=== PATIENT | male | born 1930 | race Caucasian/White ===

== ENCOUNTER 2016-09-16 21:09 | Observation (INO) | payer MEDICARE ==
[~2016-09-16] VITALS: Ht 170.2 cm; Wt 93.9 kg
[~2016-09-16 21:09] MED LIST: AMARYL2 MG PO; AMLODIPINE5 MG PO; ASPIRIN EC81 MG PO; ATENOLOL100 MG PO; ATENOLOL50 MG PO; BAYER ASA325 MG PO; CINNAMON500 M1 OR; CIPRO XR500 MG PO; CIPROFLOXACN500 MG PO; CRESTOR20 MG OR; CRESTOR20 MG PO; DILAUDID2 MG PO; ECPIRIN325 MG OR; FE GLUCONATE325 MG OR; FERR SULFATE325 MG PO; FERROUS GLUC PO; FERROUS SULF325 M2 OR; FINASTERIDE5 MG OR; FLOMAX0.4 M1 PO; FLORASTOR250 M1 PO; GLIMEPIRIDE2 MG OR; IRON28 MG PO; LEVOTHYROXIN100 MCG PO; LEVOTHYROXIN50 MC1 PO; LEVOTHYROXIN75 MC1 PO; LISINOPRIL20 MG OR; LISINOPRIL20 MG PO; LOPID600 MG OR; LOPID600 MG PO; METFORMIN850 MG OR; MULTI VIT OR; NIACIN SR500 MG PO; NIACIN500 MG OR; NIACIN500 MG PO; PANTOPRAZOLE SO40 M1 PO; PLAVIX75 MG OR; PLAVIX75 MG PO; PRAVASTATIN SOD20 MG PO; PROSCAR5 MG PO; SIMVASTATIN80 MG PO; SYNTHROID50 MCG OR; TAMSULOSIN0.4 MG OR; TENORMIN OR; TENORMIN100 MG PO; VITAMIN B-121000 MCG OR; VITAMIN B-121000 MCG PO; VITAMIN D32000 UNIT PO; VITAMIN D50000 UN1 PO; ZESTRIL20 MG OR; ZESTRIL20 MG PO; [UNRECOGNIZED DRUG - CODE] OR; [UNRECOGNIZED DRUG - CODE] OR
[2016-09-16] MEDS ORDERED: CHLORTHALID25 MG PO (21:38)
[2016-09-16] MEDS ORDERED: CLONIDINE0.1 MG PO (21:39)
[2016-09-16 21:40] LABS: HEMATOCRIT 41.5 % (39.0-50.0); IMMATURE GRANULOCYTES 0.1 % (0.0-1.0); MEAN CELL VOLUME 92.2 fL CALC (80.0-100.0); MEAN CORPUSCULAR HGB 31.1 pG CALC (26.0-32.0); MEAN CORPUSCULAR HGB CONC 33.7 g/L CALC (32.0-36.0); NEUT# 3.36 thou/uL (1.82-7.42); RED BLOOD COUNT 4.5 mill/uL (4.70-6.10); RED CELL DISTRI WIDTH 13.5 % (11.5-15.5)
[2016-09-16] MEDS ORDERED: ASPIRIN LOW DOS81 M1 PO (21:40)
[2016-09-16] MEDS ORDERED: TRESIBA FL100 UNIT/M SC (21:42)
[2016-09-16] MEDS ORDERED: ESCITALOPRAM OX10 MG PO (21:47)
[2016-09-16] MEDS ORDERED: LOSARTAN POT50 MG PO (21:47)
[2016-09-16] MEDS ORDERED: ATORVASTATIN CA40 MG PO (21:48)
[2016-09-16 21:53] LABS: ALBUMIN 4.5 g/dL (3.2-5.0); BILIRUBIN, TOTAL 0.9 mg/dL (0.0-1.4); CALCIUM 9.4 mg/dL (8.4-10.2); CREATININE 1.5 mg/dL (0.7-1.3); POTASSIUM 4.3 mmol/l (3.5-5.1); TOTAL PROTEIN 7.6 g/dL (6.3-8.2)
[2016-09-16 21:56] LABS: ACT PARTIAL THROMBO TIME 26.5 SECONDS (20.0-32.5); PROTHROMBIN TIME 11.4 SECONDS (9.0-12.5)
[2016-09-16] MEDS ORDERED: TIMOLOL 0.5%5 ML OU (22:11)
[2016-09-16] MEDS ORDERED: LATANOPROST0.005 % OU (22:12)
[2016-09-16] MEDS ORDERED: D32000 UNI1 PO (22:16)
[2016-09-16] MEDS ORDERED: MULTIVITAMI1 PO (22:17)
[2016-09-16] MEDS ORDERED: B121000 MCG PO (22:17)
[2016-09-17 00:24] LABS: URINE BILIRUBIN - DIPSTICK NEGATIVE (NEGATIVE); URINE BLOOD DIPSTICK NEGATIVE (NEGATIVE); URINE CLARITY CLEAR; URINE COLOR YELLOW; URINE GLUCOSE - DIPSTICK NEGATIVE (NEGATIVE); URINE KETONE NEGATIVE (NEGATIVE); URINE LEUK ESTERASE NEGATIVE (NEGATIVE); URINE NITRITE - DIPSTICK NEGATIVE (Negative); URINE PH 6.5 (4.5-8.0); URINE PROTEIN - DIPSTICK NEGATIVE (NEG-TRACE)
[2016-09-17 02:57] VITALS: BP 130/68
[2016-09-17 08:01] LABS: CHOLESTEROL HDL RATIO 3.8 (<4.4 (CALC))
[2016-09-17 10:25] VITALS: BP 130/67
[2016-09-17 11:28] VITALS: BP 108/61
[2016-09-17 16:10] VITALS: BP 122/66
[2016-09-17] MEDS ORDERED: ISOSORB MONO30 MG PO (16:45)
== END 2016-09-17 17:40 | disposition home or self-care (01) ==
LOC: ED 21:09 → ED-I 09-17 00:21 → ED 09-17 02:31 → MS2 09-17 02:32
PROVIDERS: Emergency Medicine; Nurse Practitioner Family; ADMIT Internal Medicine; ATTEND Internal Medicine
DX: R07.2 Precordial pain (principal); I12.9 Hypertensive chronic kidney disease with stage 1 through stage 4 chronic kidney disease, or unspecified chronic kidney disease; E11.22 Type 2 diabetes mellitus with diabetic chronic kidney disease; N18.3 Chronic kidney disease, stage 3 (moderate); I25.10 Atherosclerotic heart disease of native coronary artery without angina pectoris; E11.51 Type 2 diabetes mellitus with diabetic peripheral angiopathy without gangrene; E11.69 Type 2 diabetes mellitus with other specified complication; E78.5 Hyperlipidemia, unspecified; R00.1 Bradycardia, unspecified; T46.5X5A Adverse effect of other antihypertensive drugs, initial encounter; E66.3 Overweight; Z79.84 Long term (current) use of oral hypoglycemic drugs; Z98.61 Coronary angioplasty status; Z87.891 Personal history of nicotine dependence; Z68.32 Body mass index [BMI] 32.0-32.9, adult

== ENCOUNTER 2018-05-08 10:42 | Inpatient (IN) | payer MEDICARE ==
[~2018-05-08] VITALS: Ht 170.2 cm; Wt 82.6 kg
[~2018-05-08 10:42] MED LIST changes: +ASPIRIN LOW DOS81 M1 PO; +ATORVASTATIN CA40 MG PO; +B121000 MCG PO; +CHLORTHALID25 MG PO; +CLONIDINE0.1 MG PO; +D32000 UNI1 PO; +ESCITALOPRAM OX10 MG PO; +ISOSORB MONO30 MG PO; +LATANOPROST0.005 % OU; +LOSARTAN POT50 MG PO; +MULTIVITAMI1 PO; +TIMOLOL 0.5%5 ML OU; +TRESIBA FL100 UNIT/M SC
--- NOTE | 2018-05-08 10:42 | NUR ---
PT TO ROOM 10 VIA EMS.
--- NOTE | 2018-05-08 11:06 | NUR ---
PT PLACED ON HI FLOW NC AT 8L/M W/HUMIFICATION
[2018-05-08 11:08] LABS: IMMATURE GRANULOCYTES 0.4 % (0.0-5.0); MEAN CORPUSCULAR HGB 30.5 pG CALC (26.0-32.0); MEAN CORPUSCULAR HGB CONC 31.1 g/L CALC (32.0-36.0); NEUT# 9.67 thou/uL (1.82-7.42); RED BLOOD COUNT 3.57 mill/uL (4.70-6.10); RED CELL DISTRI WIDTH 16.4 % (11.5-15.5)
[2018-05-08 11:21] LABS: HEMATOCRIT 35.1 % (39.0-50.0); HEMOGLOBIN 10.9 g/dl (14.0-18.0); MEAN CELL VOLUME 98.3 fL CALC (80.0-100.0)
[2018-05-08 11:24] LABS: ALBUMIN 3.6 g/dL (3.2-5.0); ALKALINE PHOSPHATASE 144 u/l (38-126); ANION GAP 16 (6-22 (CALC)); BILIRUBIN, TOTAL 1.1 mg/dL (0.0-1.4); BUN 22 mg/dL (8-23); BUN/CREATININE RATIO 24 (12-20 (CALC)); CARBON DIOXIDE 26 mmol/l (22-30); CHLORIDE 98 mmol/l (95-108); CREATININE 0.9 mg/dL (0.7-1.3); GFR > 60 ML/MIN (>=60 (CALC)); GFR FOR AFR.AMER. > 60 ML/MIN (>=60 (CALC)); POTASSIUM 4.6 mmol/l (3.5-5.1); SGOT/AST 30 u/l (19-48); SODIUM 136 mmol/l (137-146); TOTAL PROTEIN 6.8 g/dL (6.3-8.2)
[2018-05-08 11:36] LABS: MYOGLOBIN 227 ng/mL (0 - 121)
--- NOTE | 2018-05-08 12:05 | NUR ---
pt awaiting xray results.
--- NOTE | 2018-05-08 13:00 | NUR ---
pt sleeping on stretcher. sats 96%
--- NOTE | 2018-05-08 13:00 | NUR ---
PT RESTING ON STRETCHER W/EYES CLOSED. SATS 96% WHEN ASLEEP ELEVATED HOB AND NOT TALKING
--- NOTE | 2018-05-08 13:46 | NUR ---
[facility] VEGA[facility]
--- NOTE | 2018-05-08 13:52 | NUR ---
report called to jacqueline mock, on medsurg. pt to medsurg via stretch on o2.
--- NOTE | 2018-05-08 14:00 | NUR ---
PT ARRIVED TO MS2 VIA STRETCHER ACCOMPANIED BY ER NURSE. PT ALERT AND ORIENTED X3, AMBULATED TO STANDING SCALE THEN TO BED. ORIENTED PT TO ROOM AND CALL LIGHT, DISCUSSED POC. ADMISSION ASSESSMENT COMPLETED. PT IS ON 10L NC WITH HI-TEVIN, CONFIRMED WITH RT AND PACKAGING SUPERVISOR. PT IS 02 DEPENDENT. CALL LIGHT IN REACH,CONTINUE TO MONITOR.
[2018-05-08 14:05] VITALS: BP 127/73
[2018-05-08 15:35] LABS: MAGNESIUM 1.6 mg/dL (1.6-2.3)
--- NOTE | 2018-05-08 16:15 | NUR ---
PT TAKEN DOWN TO RADIOLOGY FOR CT VIA WHEELCHAIR ACCOMPANIED BY CAREER CENTER ADVISOR. CONTINUE TO MONITOR.
[2018-05-08 19:19] VITALS: BP 159/70
--- NOTE | 2018-05-08 19:47 | NUR ---
PT ASSESSED. HE WAS IN BED AWAKE WATCHING TV. NO S/O DISTRESS NOTED, REPORTS FEELING "OKAY." POC AND HISTORY DISCUSSED. CRACKLES AND MILD WHEEZE AUSCILTATED IN LUNGS, ABD SOFT NON-TENDER W/ACTIVE BOWEL SOUNDS/LAST STOOL REPORTED YESTERDAY NORMAL. LOCX4. DENIES DIZZINESS, REPORTED FEELING VERY WEAK AND SOME SOB TODAY PRIOR TO ARRIVING TO HOSPITAL. 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 DENIES DIFFICULTY URINATING. SKIN IS INTACT, NO NOTED EDEMA. PT RECEIVED PHONE CALL, WILL FOLLOW-UP WITH ANY MEDICATIONS ORDERED.
[2018-05-08] MEDS ORDERED: ISOSORB MONO30 MG PO (21:47)
[2018-05-08] MEDS ORDERED: LEVOTHYROXIN100 MC1 PO (21:47)
[2018-05-08] MEDS ORDERED: COZAAR100 MG PO (21:48)
[2018-05-08] MEDS ORDERED: AMLODIPINE BESYL5 MG PO (21:48)
[2018-05-08] MEDS ORDERED: LOPRESSOR 550 MG/TAB PO (21:48)
[2018-05-08] MEDS ORDERED: CLONIDINE0.1 MG PO (21:49)
[2018-05-08] MEDS ORDERED: LEXAPRO10 MG PO (21:49)
[2018-05-08] MEDS ORDERED: LIPITOR40 M1 PO (21:50)
[2018-05-08] MEDS ORDERED: PROTONIX40 M2 PO (21:50)
--- NOTE | 2018-05-08 21:50 | NUR ---
PT MEDICATED FOR BLOOD SUGAR ACCUCHECK OF 247. IV SITE APPEARS INFILTRATED/WILL ATTEMPT ADDITIONAL IV ACESS. PT APPEARS RELAXED AND IS PLEASANTLY INTERACTING REGARDING CARE.
[2018-05-08] MEDS ORDERED: TOUJEO SOL300 UNIT/M SC (21:51)
[2018-05-08] MEDS ORDERED: ASPIRIN ADULT L81 M2 PO (21:52)
[2018-05-08 23:30] LABS: URINE BILIRUBIN - DIPSTICK NEGATIVE (NEGATIVE); URINE BLOOD DIPSTICK TRACE-INTACT (NEGATIVE); URINE COLOR YELLOW; URINE GLUCOSE - DIPSTICK 500 mg/dL (NEGATIVE); URINE KETONE NEGATIVE (NEGATIVE); URINE LEUK ESTERASE NEGATIVE (NEGATIVE); URINE NITRITE - DIPSTICK NEGATIVE (Negative); URINE PH 5.5 (4.5-8.0); URINE PROTEIN - DIPSTICK NEGATIVE (NEG-TRACE)
[2018-05-09] VITALS (8 sets, daily range): BP systolic 115–180; BP diastolic 53–80
--- NOTE | 2018-05-09 00:15 | NUR ---
PT BP ELEVATED 180/73,HR 81. PT WAS SLEEPING, MANUAL BP OBTAINED. PHYSICIAN NOTIFIED, ORDERS RECEIVED.
--- NOTE | 2018-05-09 00:40 | NUR ---
PT MEDICATED FOR SBP 182. WILL FOLLOW-UP FOR RESPONSE.
--- NOTE | 2018-05-09 03:25 | NUR ---
ED CALLED TO REPORT PT HAD AN 8 BEAT RUN OF V-TACH. UPON ENTERING ROOM PT WAS ASLEEP, AWOKE TO MY VOICE, APPEARS ASYMPTOMATIC, DENYING PAIN, SOB OR DISTRESS AT THIS TIME. V/S OBTAINED. PHYSICIAN WILL BE NOTIFIED.
--- NOTE | 2018-05-09 06:15 | NUR ---
PT MEDICATED ORDERS PROVIDE. PT SITTING ON SIDE OF THE BED, PT OFFERED COFFEE/PROVIDED. HE IS READING A BOOK.
[2018-05-09 06:44] LABS: ANION GAP 14 (6-22 (CALC)); BUN 19 mg/dL (8-23); BUN/CREATININE RATIO 25 (12-20 (CALC)); CARBON DIOXIDE 29 mmol/l (22-30); CHLORIDE 99 mmol/l (95-108); CREATININE 0.8 mg/dL (0.7-1.3); GFR > 60 ML/MIN (>=60 (CALC)); GFR FOR AFR.AMER. > 60 ML/MIN (>=60 (CALC)); MAGNESIUM 1.7 mg/dL (1.6-2.3); SODIUM 139 mmol/l (137-146)
[2018-05-09 07:02] LABS: HEMOGLOBIN 12.6 g/dl (14.0-18.0); IMMATURE GRANULOCYTES 1.3 % (0.0-5.0); MEAN CELL VOLUME 95.5 fL CALC (80.0-100.0); MEAN CORPUSCULAR HGB 30.1 pG CALC (26.0-32.0); MEAN CORPUSCULAR HGB CONC 31.5 g/L CALC (32.0-36.0); NEUT# 8.34 thou/uL (1.82-7.42); RED BLOOD COUNT 4.19 mill/uL (4.70-6.10); RED CELL DISTRI WIDTH 16.2 % (11.5-15.5)
--- NOTE | 2018-05-09 08:00 | NUR ---
NOTIFIED BY ELIAS IN LAB PT HAS A CRITICAL TROPONIN, RESULTS CALLED TO JUNE, PT IS ASYMPTOMATIC, SITTING IN RECLINER READING, DENIES PAIN OR DISCOMFORT. ORDERS TO REPEAT IN 4HRS.
--- NOTE | 2018-05-09 10:53 | NUR ---
RECIEVED A CRITICAL LAB REPORT FROM NOAM. TROPONIN READING 0.173. TROPININ LEVEL GIVEN TO CURRENT NURSE CARING FOR PT; ULICES VEGA
--- NOTE | 2018-05-09 10:56 | NUR ---
NOTIFIED BASE BRANDER OF CRITICAL TROPONIN, PREVIOUS 0.149 REPEAT 0.173. BASE BRANDER TO DISCUSS WITH PT AND SON AT BEDSIDE. STAT EKG ORDERED. RT CALLED. PT STABLE SITTING IN RECLINER, NO SIGNS OF DISTRESS NOTED, RESP EVEN AND UNLABORED.
--- NOTE | 2018-05-09 10:59 | NUR ---
RT TO BEDSIDE FOR EKG
--- NOTE | 2018-05-09 19:05 | NUR ---
REPORT FROM GARY ELENA. PT SITTING UP IN CHAIR. O2 AT 8L/M HUMIDIFIED VIA HIGHFLOW NC. NO RESPIRATORY DISTRESS NOTED. PT DENIES ANY PAIN OR DISCOMFORT. PT VERY TALKATIVE AND PLEASANT. IV SITE APPEARS HEALTHY. DISCUSSED POC. PT VERBALIZED UNDERSTANDING. CALL LIGHT WITHIN REACH. WILL CONTINUE TO MONITOR.
--- NOTE | 2018-05-09 21:52 | NUR ---
NOTIFIED DR. YANEZ OF CRITICAL LABS. PT ASYMPTOMATIC. NO NEW ORDERS RECIEVED AT THIS TIME. WILL CONTINUE TO MONITOR.
--- NOTE | 2018-05-09 23:05 | NUR ---
PT REPORTS HIGHFLOW NC NOT WORKING PROPERLY. RT IN ROOM TO ASSESS. HIGH FLOW NC CHANGED AT THIS TIME AND PLACED ON REGULAR NC ON 4L/M PT O2 SAT 93% AT THIS TIME. WILL CONTINUE TO MONITOR.
[2018-05-10] VITALS (7 sets, daily range): BP systolic 144–177; BP diastolic 70–87
--- NOTE | 2018-05-10 03:27 | NUR ---
PT C/O NC NOT WORKING STATING NO OXYGEN COMING OUT. PUBLIC SERVICE OFFICER CHECKED NC. WORKING PROPERLY AT THIS TIME. 02 SAT CHECKED PT 97% ON 4L/M. WILL CONTINUE TO MONITOR.
[2018-05-10 05:11] LABS: HEMATOCRIT 38.4 % (39.0-50.0); HEMOGLOBIN 12.2 g/dl (14.0-18.0); MEAN CELL VOLUME 95.8 fL CALC (80.0-100.0); MEAN CORPUSCULAR HGB 30.4 pG CALC (26.0-32.0); MEAN CORPUSCULAR HGB CONC 31.8 g/L CALC (32.0-36.0); NEUT# 15.85 thou/uL (1.82-7.42); RED BLOOD COUNT 4.01 mill/uL (4.70-6.10); RED CELL DISTRI WIDTH 16.5 % (11.5-15.5)
[2018-05-10 05:22] LABS: ANION GAP 15 (6-22 (CALC)); BUN 26 mg/dL (8-23); BUN/CREATININE RATIO 29 (12-20 (CALC)); CARBON DIOXIDE 27 mmol/l (22-30); CHLORIDE 101 mmol/l (95-108); CREATININE 0.9 mg/dL (0.7-1.3); GFR > 60 ML/MIN (>=60 (CALC)); GFR FOR AFR.AMER. > 60 ML/MIN (>=60 (CALC)); MAGNESIUM 2.1 mg/dL (1.6-2.3); SODIUM 140 mmol/l (137-146)
--- NOTE | 2018-05-10 05:47 | NUR ---
CRITICAL LAB CALLED TO DR. YANEZ. NO NEW ORDERS RECIEVED AT THIS TIME.
--- NOTE | 2018-05-10 07:00 | NUR ---
REPORT RECEIVED FROM ULICES BOWLING;PT OOB RESTING IN RECLINER WATCHING TV;INTRODUCED SELF TO PT AND POC DISCUSSED;RESPIRATIONS EVEN AND UNLABORED ON O2;PT DENIES ANY CURRENT PAIN OR NEEDS;ACCUCHECK 239, PT TO BE COVERED WITH SLIDING SCALE NOVOLOG PER ORDER;ENCOURAGED TO CALL FOR ASSISTANCE IF NEEDED;FALL PRECAUTIONS IN PLACE WITH CALL LIGHT IN REACH;WILL CONTINUE TO MONITOR
--- NOTE | 2018-05-10 08:00 | NUR ---
PT OOB RESTING IN RECLINER WATCHING TV,A&O X3;VS OBTAINED AND ASSESSMENT COMPLETED;RESPIRATIONS EVEN AND UNLABORED ON O2 @ 4L VIA NC,CRACKLES NOTED;NON-PRODUCTIVE COUGH;ABDOMEN DISTENDED/SOFT ON PALPATION AND ACTIVE IN ALL 4 QUADRANTS;WEAK PEDAL PULSES;SKIN INTACT;#22G TO LAC AND #22G TO RAC FLUSHED AND PATENT,BOTH SITES APPEAR HEALTHY;TELE MONITORING IN PLACE;ACCUCHECK 239, PT COVERED WITH SLIDING SCALE NOVOLOG PER ORDER;FRESH COFFEE PROVIDED PER REQUEST;PT DENIES ANY ADDITIONAL NEEDS AT THIS TIME;ENCOURAGED TO CALL FOR ASSISTANCE IF NEEDED;FALL PRECAUTIONS IN PLACE WITH CALL LIGHT IN REACH;WILL CONTINUE TO MONITOR
--- NOTE | 2018-05-10 09:21 | NUR ---
SPOKE TO DR. WILSON'S OFFICE STAFF AT [phone]. TOLD THEM PT NAME,, AND ROOM NUMBER. STAFF STATED THEY WILL LET DR. WILSON KNOW ABOUT CONSULTATION.
--- NOTE | 2018-05-10 11:25 | NUR ---
PT OOB RESTING IN RECLINER WATCHING TV;RESPIRATIONS REMAIN EVEN AND UNLABORED,SHALLOW ON O2 @ 4L VIA NC;PT DENIES ANY CURRENT PAIN OR NEEDS;TELE MONITORING IN PLACE;ACCUCHECK 288, COVERED WITH SLIDING SCALE NOVOLOG PER ORDER;IV SITES REMAIN PATENT;PT ENCOURAGED TO CALL FOR ASSISTANCE IF NEEDED;FALL PRECAUTIONS IN PLACE WITH CALL LIGHT IN REACH;WILL CONTINUE TO MONITOR
--- NOTE | 2018-05-10 12:15 | NUR ---
AT BEDSIDE DISCUSSING POC.
--- NOTE | 2018-05-10 16:13 | NUR ---
PT OOB RESTING IN RECLINER WATCHING TV;RESPIRATIONS EVEN AND UNLABORED ON O2 @ 4L VIA NC;PT DENIES ANY CURRENT PAIN OR NEEDS;TELE MONITORING IN PLACE;ASSESSMENT REMAINS UNCHANGED AT THIS TIME;ENCOURAGED TO CALL FOR ASSISTANCE IF NEEDED;CALL LIGHT IN REACH;WILL CONTINUE TO MONITOR
--- NOTE | 2018-05-10 17:12 | NUR ---
AT BEDSIDE DISCUSSING POC.
--- NOTE | 2018-05-10 20:20 | NUR ---
PT. RESTING IN BED ON RIGHT SIDE WITH EYES CLOSED; AROUSES EASILY AND AWAKENED FOR ASSESSMENT; COMPLETED AT THIS TIME; O2 INFUSING PER NC @4LITERS/MIN PER NC; IV SITE PATENT AND SL; ENCOURAGED TO CALL FOR ANY NEEDS; CALL LIGHT IS IN REACH;
--- NOTE | 2018-05-10 22:12 | NUR ---
NOTIFIED DR. YANEZ OF PT HAVING CONFUSION AND PT. BEING FOUND WITHOUT O2 UP TO THE BATHROOM AND SPO2 CHECKED WITH O2 RE-APPLIED AND BEING 95%; ALSO NOTIFIED HIM OF PT. NOT HAVING MUCH SLEEP IN THE PAST COUPLE DAYS; NEW ORDERS FOR ABG OBTAINED AND RT NOTIFIED;
--- NOTE | 2018-05-10 22:24 | NUR ---
NOTIFIED DR. YANEZ OF ABG RESULTS;
--- NOTE | 2018-05-10 23:00 | NUR ---
NOTIFIED DR. YANEZ OF PT. CONITUING TO BE INTERMITTENTLY CONFUSED WITH WHERE HE IS; NEW ORDERS RECEIVED FOR UA; WILL CARRY OUT ORDERS; MEDICATED WITH ORDERED PRN APRESOLINE FOR B/P ; WILL REASSESS; PT. REMINDED AND RE-ORIENTED TO CALL LIGHT USE; BED ALARM ON FOR SAFETY PRECAUTIONS; CALL LIGHT IS IN REACH.
[2018-05-11 01:45] VITALS: BP 148/76
--- NOTE | 2018-05-11 03:00 | NUR ---
EMPLOYEE HEALTH RN IN AT BEDSIDE ASSISTED PT. TO USE URINAL; SAMPLE OBTAINED; LAB CALLED FOR ADVANCED MANAGER.
[2018-05-11 04:35] VITALS: BP 158/85
[2018-05-11 04:51] LABS: URINE BILIRUBIN - DIPSTICK NEGATIVE (NEGATIVE); URINE BLOOD DIPSTICK NEGATIVE (NEGATIVE); URINE COLOR YELLOW; URINE GLUCOSE - DIPSTICK 250 mg/dL (NEGATIVE); URINE KETONE NEGATIVE (NEGATIVE); URINE LEUK ESTERASE NEGATIVE (Negative); URINE NITRITE - DIPSTICK NEGATIVE (Negative); URINE PROTEIN - DIPSTICK 30 mg/dL (NEG-TRACE); URINE SPECIFIC GRAVITY 1.025
[2018-05-11 04:52] LABS: URINE CLARITY CLEAR
[2018-05-11 05:16] LABS: ALBUMIN 3.9 g/dL (3.2-5.0); ALKALINE PHOSPHATASE 139 u/l (38-126); AMYLASE 88 u/l (30-110); ANION GAP 16 (6-22 (CALC)); BILIRUBIN, TOTAL 0.5 mg/dL (0.0-1.4); BUN 27 mg/dL (8-23); BUN/CREATININE RATIO 35 (12-20 (CALC)); CARBON DIOXIDE 30 mmol/l (22-30); CHLORIDE 100 mmol/l (95-108); CREATININE 0.8 mg/dL (0.7-1.3); GFR > 60 ML/MIN (>=60 (CALC)); GFR FOR AFR.AMER. > 60 ML/MIN (>=60 (CALC)); LIPASE 360 u/l (23-300); POTASSIUM 4.4 mmol/l (3.5-5.1); SGOT/AST 37 u/l (19-48); SODIUM 141 mmol/l (137-146); TOTAL PROTEIN 7.2 g/dL (6.3-8.2)
[2018-05-11 05:17] LABS: HEMATOCRIT 38.9 % (39.0-50.0); HEMOGLOBIN 12.2 g/dl (14.0-18.0); IMMATURE GRANULOCYTES 1.5 % (0.0-5.0); MEAN CELL VOLUME 96.3 fL CALC (80.0-100.0); MEAN CORPUSCULAR HGB 30.2 pG CALC (26.0-32.0); MEAN CORPUSCULAR HGB CONC 31.4 g/L CALC (32.0-36.0); NEUT# 19.05 thou/uL (1.82-7.42); RED BLOOD COUNT 4.04 mill/uL (4.70-6.10); RED CELL DISTRI WIDTH 16.6 % (11.5-15.5)
[2018-05-11 06:35] LABS: URINE RBC 0-2 RBC/hpf (0-5); URINE WBC 0-2 WBC/hpf (0-5)
--- NOTE | 2018-05-11 06:50 | NUR ---
REPORT RECEIVED FROM MICHELLERN;PT RESTING IN SEMI FOWLERS POSITION,A&O X3;INTRODUCED SELF TO PT AND POC DISCUSSED;RESPIRATIONS EVEN AND UNLABORED,SHALLOW ON O2 @ 4L VIA NC;PT DENIES ANY CURRENT PAIN OR NEEDS;TELE MONITORING IN PLACE;ENCOURAGED TO CALL FOR ASSISTANCE IF NEEDED;FALL PRECAUTIONS IN PLACE WITH CALL LIGHT IN REACH;WILL CONTINUE TO MONITOR
--- NOTE | 2018-05-11 06:56 | NUR ---
NOTIFIED DR. YANEZ OF 7 BEAT RUN OF V-TACH.
[2018-05-11 08:13] VITALS: BP 162/79
--- NOTE | 2018-05-11 08:15 | NUR ---
PT RESTING IN SEMI FOWLERS POSITION,A&O X3;VS OBTAINED AND ASSESSMENT COMPLETED;PT DENIES ANY CURRENT PAIN OR DISCOMFORTS,PAIN SCALE AND REPORTING EDUCATED;RESPIRATIONS SHALLOW ON O2 @ 4L VIA NC;ABDOMEN DISTENDED/SOFT ON PALPATION AND ACTIVE IN ALL 4 QUADRANTS;WEAK PEDAL PULSES;SKIN INTACT;#20G TO RAC FLUSHED AND PATENT;TELE MONITORING IN PLACE;PT DENIES ANY ADDITIONAL NEEDS AT THIS TIME AND IS ENCOURAGED TO CALL FOR ASSISTANCE IF NEEDED;FALL PRECAUTIONS IN PLACE WITH CALL LIGHT IN REACH;WILL CONTINUE TO MONITOR
--- NOTE | 2018-05-11 11:36 | NUR ---
PT OOB RESTING IN RECLINER WITH AT BEDSIDE DISCUSSING POC;RESPIRATIONS EVEN AND UNLABORED ON O2 @ 4L VIA NC;PT DENIES ANY CURRENT PAIN OR NEEDS;TELE MONITORING IN PLACE;ASSESSMENT REMAINS UNCHANGED AT THIS TIME;ENCOURAGED PT TO CALL FOR ASSISTANCE IF NEEDED;CALL LIGHT IN REACH;WILL CONTINUE TO MONITOR
[2018-05-11 12:00] VITALS: BP 147/74
--- NOTE | 2018-05-11 13:59 | NUR ---
PT WAS SEEN RESTING IN THE RECLINER WITH O2 VIA NASAL CANNULA SET AT 3L. THERE WAS AN BLOCK SEALER PRESENT PERFORMING BREATHING TX. SPO2 WAS 94-96% WITHOUT SOB. PT THEN AMBULATED THE HALLWAY ~60 FT. X 2 WITH QUAD CANE AND PORTABLE O2 SET AT 3L. PT WAS ABLE TO FINISH THE ACTIVITY HOWEVER NOTED SOB AT THE END. PT WAS THEN INSTRUCTED ON PROPER BREATHING AND ASSISTED TO REST IN THE RECLINER, SOB RESOLVED. NO ADVERSE RXNS NOTED OR REPORTED. LEFT PT WITH CALL SOW BESIDE HIM.
--- NOTE | 2018-05-11 15:59 | NUR ---
PT OOB RESTING IN RECLINER;IV SITE TO RAC INFILTRATED AND REMOVED WITH CATHETER INTACT,NEW SITE TO BE STARTED;RESPIRATIONS EVEN AND UNLABORED ON O2 @ 4L VIA NC;TELE MONITORING IN PLACE;PT DENIES ANY ADDITIONAL NEEDS AT THIS TIME AND IS ENCOURAGED TO CALL FOR ASSISTANCE IF NEEDED;CALL LIGHT IN REACH;WILL CONTINUE TO MONITOR
[2018-05-11 16:00] VITALS: BP 165/76
--- NOTE | 2018-05-11 16:40 | NUR ---
PT UPSET. PT STATES "MY IV HURTS AND ITS BECAUSE YOU LEFT THIS BANDAGE (COBAN) ON";PT RE-EDUCATED THAT NURIAITTER REMOVED IV SITE ALITTLE WHILE AGO AND THAT THE BURNING AT THE SITE IS RELATED TO THE INFILTRATION;PT STATES "IF YOU WOULD HAVE DONE YOUR JOB YOU WOULD HAVE KNOWN THAT MY ARM IS STILL BURNING SINCE YOU TOOK IT OUT", PT ALSO REPORTS THAT HE DID NOT REPORT EXCESSIVE BURNING OR USE THE CALL LIGHT TO INFORM NURSE STATING "AM I SUPPOSED TO CALL YOU FOR EVERYTHING";ICE PACKS PROVIDED FOR COMFORT;WHEN GABBY REINFORCED THE CALL LIGHT SYSTEM PT STATED "GET OUT OF MY ROOM, YOU ARE АННА I JUST DONT LEAVE".
--- NOTE | 2018-05-11 19:15 | NUR ---
PT. UP IN THE HALLWAY CONFUSED TO PLACE; RE-ORIENTED AT THIS TIME; NEEDS OFTEN REINFORCEMENT;
[2018-05-11 19:35] VITALS: BP 162/78
--- NOTE | 2018-05-11 21:24 | NUR ---
ASSESSMENT COMPLETED; PT. TALKING TO SON ON THE PHONE; PT. IS NOT ALERT TO PLACE AT THIS TIME; RE-ORIENTED; WILL CONTINUE TO DO SO. IV SITE PATENT AND SL; SNACK PROVIDED; SCHED MEDS GIVEN; ENCOURAGED TO CALL FOR ANY NEEDS; CALL LIGHT IS IN REACH; BED ALARM IN PLACE FOR SAFETY PRECAUTIONS; PT. RE-INSTRUCTED NOT TO GET OOB ALONE; PT. STATES,"I AM NOT GOING TO CALL YOU IF I HAVE TO GO, I AM JUST GOING TO GET UP."PT. AGAIN RE-EDUCATED ON CALLING STAFF FOR ALL OOB NEEDS; WILL CONTINUE TO MONITOR.
--- NOTE | 2018-05-11 22:15 | NUR ---
PT. UP IN THE HALLWAY AND REFUSES TO GO BACK INTO ROOM; YELLING AT STAFF WITH CURSE WORDS STATING,"I AM AT MY FUCKING HOUSE, YOU GUYS HAVE NO RIGHT TO BE TRESPASSING." PT. ALSO STATES,"I AM NOT SITTING DOWN UNTIL I GET MY DAMN RADIO." PT. IS RE-ORIENTED TO PLACE AND IS UNSUCCESSFUL; MULTIPLE STAFF IN WITH PT. AT THIS TIME. PT. IS VERBALLY AGRESSIVE WITH STAFF; PT. FINALLY SITS BACK INTO RECLINER AND PT. IS STILL ANGRY; ATTEMPTED RELAXATION TECHNIQUES; WILL CONTINUE TO MONITOR. BED ALARM RE-APPLIED; CALL LIGHT IS IN REACH.
--- NOTE | 2018-05-11 22:50 | NUR ---
SPOKE WITH MD LAYER OFF AND NOTIFIED HIM OF PT'S CONFUSION AND OF AGGRESIVENESS TOWARDS STAFF; ALSO NOTIFIED HIM PT'S INCREASE OF CONFUSION POST STEROID ADMINISTRATION; NO NEW ORDERS RECEIVED AT THIS TIME;
--- NOTE | 2018-05-11 23:25 | NUR ---
PT. SET OFF BED ALARM; ASSISTED TO USE URINAL AND GET BACK TO RECLINER; RESET BED ALARM; CALL LIGHT IS IN REACH.
[2018-05-12 02:38] VITALS: BP 174/92
--- NOTE | 2018-05-12 02:42 | NUR ---
MEDICATED WITH ORDERED PRN APRESOLINE FOR ELEVATED B/P 174/92; WILL REASSESS; DENIES FURTHER NEEDS; BED ALARM ON; CALL LIGHT IS IN REACH.
--- NOTE | 2018-05-12 04:47 | NUR ---
PER STAFF DEVELOPMENT EDUCATOR HR WAS IN THE 30'S; RADIAL HR OBTAINED AND IS 78; PT. WITH NO S/S OF DISTRESS NOTED; VS OBTAINED B/P 159/80; WILL CONTINUE TO MONITOR.
[2018-05-12 04:48] VITALS: BP 159/80
--- NOTE | 2018-05-12 05:19 | NUR ---
0507- PER ER DRAGLINE MECHANIC, PT. HAD A 7 BEAT RUN OF V-TACH; PT. IS SITTING UP IN RECLINER RECEIVING A NEB TX; NO DISTRESS NOTED; DENIES PAIN; PT. IS ASYMPTOMATIC; VSS; WILL CONTINUE TO MONITOR. 9546- NOTIFIED DR. YANEZ OF ABOVE NOTE; NO NEW ORDERS RECEIVED;
[2018-05-12 05:53] LABS: HEMATOCRIT 41.8 % (39.0-50.0); HEMOGLOBIN 13.4 g/dl (14.0-18.0); IMMATURE GRANULOCYTES 2.1 % (0.0-5.0); MEAN CELL VOLUME 95.7 fL CALC (80.0-100.0); MEAN CORPUSCULAR HGB 30.7 pG CALC (26.0-32.0); MEAN CORPUSCULAR HGB CONC 32.1 g/L CALC (32.0-36.0); NEUT# 19.45 thou/uL (1.82-7.42); RED BLOOD COUNT 4.37 mill/uL (4.70-6.10); RED CELL DISTRI WIDTH 16.5 % (11.5-15.5)
[2018-05-12 06:13] LABS: ALBUMIN 4.1 g/dL (3.2-5.0); ALKALINE PHOSPHATASE 138 u/l (38-126); ANION GAP 15 (6-22 (CALC)); BILIRUBIN, TOTAL 0.6 mg/dL (0.0-1.4); BUN 34 mg/dL (8-23); BUN/CREATININE RATIO 37 (12-20 (CALC)); CARBON DIOXIDE 29 mmol/l (22-30); CHLORIDE 100 mmol/l (95-108); CREATININE 0.9 mg/dL (0.7-1.3); GFR > 60 ML/MIN (>=60 (CALC)); GFR FOR AFR.AMER. > 60 ML/MIN (>=60 (CALC)); POTASSIUM 4.8 mmol/l (3.5-5.1); SGOT/AST 34 u/l (19-48); SODIUM 140 mmol/l (137-146); TOTAL PROTEIN 7.4 g/dL (6.3-8.2)
--- NOTE | 2018-05-12 07:20 | NUR ---
REPORT RECEIVED FROM STEPHANIE MARTINEZ;PT OOB RESTING IN RECLINER;INTRODUCED SELF TO PT AND POC DISCUSSED;RESPIRATIONS SHALLOW ON O2 @ 3L VIA NC, REINFORCEMENT REQUIRED WITH KEEPING OXYGEN ON;PT DENIES ANY CURRENT PAIN OR NEEDS;TELE MONITORING IN PLACE;ENCOURAGED PT TO CALL FOR ASSISTANCE IF NEEDED;FALL PRECAUTIONS IN PLACE INCLUDING BED ALARM FOR PT SAFETY;CALL LIGHT IN REACH;WILL CONTINUE TO MONITOR
[2018-05-12 08:55] VITALS: BP 150/74
--- NOTE | 2018-05-12 08:55 | NUR ---
PT OOB RESTING IN RECLINER;A&O X1 AT THIS TIME, FREQUENT RE-ORIENTING NEEDED TO PLACE AND TIME;VS OBTAINED AND ASSESSMENT COMPLETED;RESPIRATIONS EVEN AND UNLABORED ON O2 @ 3L VIA NC, FREQUENT REINFORCEMENT REQUIRED TO KEEP OXYGEN ON;ABDOMEN DISTENDED/SOFT ON PALPATION AND ACTIVE IN ALL 4 QUADRANTS;WEAK PEDAL PULSES;SKIN INTACT;#22G TO RIGHT WRIST FLUSHED AND PATENT,SITE APPEARS HEALTHY;TELE MONITORING IN PLACE;ALL SAFETY PRECAUTIONS REINFORCED AT THIS TIME INCLUDING BED ALARM FOR PT SAFETY;PT RE-ENCOURAGED TO CALL FOR ASSISTANCE IF NEEDED;CALL LIGHT IN REACH;WILL CONTINUE TO MONITOR
[2018-05-12 08:58] VITALS: BP 150/74
--- NOTE | 2018-05-12 11:40 | NUR ---
PHYSICAL THERAPY AT BEDSIDE
--- NOTE | 2018-05-12 11:42 | NUR ---
PT OOB RESTING IN RECLINER WITH AT BEDSIDE DISCUSSING POC INCLUDING DISCHARGE HOME WITH HOME HEALTH,PT VERBALIZES UNDERSTANDING;RESPIRATIONS REMAIN SHALLOW ON O2 @ 3L VIA NC;PT DENIES ANY CURRENT PAIN OR NEEDS;IV SITE TO RW PATENT;TELE MONITORING IN PLACE;ACCUCHECK 251, NOVOLOG TO BE ADMINISTERED PER ORDER;ENCOURAGED TO CALL FOR ASSISTANCE IF NEEDED;BED ALARM REMAINS IN PLACE FOR SAFETY;CALL LIGHT IN REACH;WILL CONTINUE TO MONITOR
--- NOTE | 2018-05-12 12:02 | NUR ---
Pt seen this am for mobility to increase endurance. He was confused stating some girls moved into his house yesterday and he told them to get the H__ out of there. Tried to re orient pt. Pt ambulated 1 x 50' CGA with small base quad cane which seemed to hinder him. Pt reports no device at home. He walked a second time without device and CGA given but not required x 75' with no LOB noted. Pt returned to chair with alarm in place, call [place] in reach. Lunch set on bedside tray in front of him. Nurse and MD present. 02 sat 94 to 88 with [address] Gait belt and non skid socks in place during treatment.
[2018-05-12] MEDS ORDERED: DOXYCYCL HYC100 MG PO (14:18)
--- NOTE | 2018-05-12 14:40 | NUR ---
PT YELLING AT STAFF, PULLING OFF TELE MONITORING STATING "IM LEAVING RIGHT NOW";IV SITE REMOVED WITH CATHETER INTACT;ALL DISCHARGE INSTRUCTIONS PROVIDED AND PT DENIES ANY QUESTIONS;WHEELCHAIR PROVIDED FOR DISCHARGE HOME.
--- NOTE | 2018-05-12 14:43 | NUR ---
Discharge instructions given. Patient verbalizes understanding of same. Discharged in stable condition via Wheelchair to Home with friend. All belongings sent with pt. Pt wheelchaired to lobby via wheelchair in stable condition accompanied by kain rich. Friend transporting pt home.
== END 2018-05-12 14:40 | disposition home or self-care (01) | DRG 190 ==
LOC: ED 10:42 → ED-I 12:22 → ED 12:48 → MS2 12:49
PROVIDERS: Emergency Medicine; Internal Medicine Nephrology; Nurse Practitioner Family; ADMIT Internal Medicine; ATTEND Internal Medicine
DX: J43.9 Emphysema, unspecified (principal); J18.9 Pneumonia, unspecified organism; I47.2 Ventricular tachycardia; J84.10 Pulmonary fibrosis, unspecified; I12.9 Hypertensive chronic kidney disease with stage 1 through stage 4 chronic kidney disease, or unspecified chronic kidney disease; E11.22 Type 2 diabetes mellitus with diabetic chronic kidney disease; N18.3 Chronic kidney disease, stage 3 (moderate); I25.10 Atherosclerotic heart disease of native coronary artery without angina pectoris; E11.69 Type 2 diabetes mellitus with other specified complication; E78.5 Hyperlipidemia, unspecified; D64.9 Anemia, unspecified; E03.9 Hypothyroidism, unspecified; E11.51 Type 2 diabetes mellitus with diabetic peripheral angiopathy without gangrene; F32.9 Major depressive disorder, single episode, unspecified; G89.29 Other chronic pain; M54.9 Dorsalgia, unspecified; R74.8 Abnormal levels of other serum enzymes; Z95.5 Presence of coronary angioplasty implant and graft; Z99.81 Dependence on supplemental oxygen; Z87.891 Personal history of nicotine dependence
CPT/HCPCS: G0378

== ENCOUNTER 2018-05-16 15:07 | Inpatient (IN) | payer MEDICARE ==
[~2018-05-16] VITALS: Ht 170.2 cm; Wt 81.8 kg
[~2018-05-16 15:07] MED LIST changes: +AMLODIPINE BESYL5 MG PO; +ASPIRIN ADULT L81 M2 PO; +COZAAR100 MG PO; +DOXYCYCL HYC100 MG PO; +LEVOTHYROXIN100 MC1 PO; +LEXAPRO10 MG PO; +LIPITOR40 M1 PO; +LOPRESSOR 550 MG/TAB PO; +PROTONIX40 M2 PO; +TOUJEO SOL300 UNIT/M SC
[2018-05-16 15:42] LABS: IMMATURE GRANULOCYTES 0.9 % (0.0-5.0); MEAN CELL VOLUME 96.3 fL CALC (80.0-100.0); MEAN CORPUSCULAR HGB 30.4 pG CALC (26.0-32.0); MEAN CORPUSCULAR HGB CONC 31.5 g/L CALC (32.0-36.0); NEUT# 11.17 thou/uL (1.82-7.42); RED BLOOD COUNT 3.49 mill/uL (4.70-6.10); RED CELL DISTRI WIDTH 16.3 % (11.5-15.5)
[2018-05-16 15:44] LABS: HEMATOCRIT 33.6 % (39.0-50.0); HEMOGLOBIN 10.6 g/dl (14.0-18.0)
[2018-05-16 15:56] LABS: ALKALINE PHOSPHATASE 112 u/l (38-126); ANION GAP 14 (6-22 (CALC)); BUN 26 mg/dL (8-23); BUN/CREATININE RATIO 31 (12-20 (CALC)); CARBON DIOXIDE 29 mmol/l (22-30); CHLORIDE 96 mmol/l (95-108); CREATININE 0.8 mg/dL (0.7-1.3); GFR > 60 ML/MIN (>=60 (CALC)); GFR FOR AFR.AMER. > 60 ML/MIN (>=60 (CALC)); POTASSIUM 4.8 mmol/l (3.5-5.1); SGOT/AST 27 u/l (19-48); SODIUM 133 mmol/l (137-146)
[2018-05-16 15:58] LABS: INTERNATIONAL NORMALIZED RATIO 1.1 RATIO (0.7-1.3); PROTHROMBIN TIME 11.1 SECONDS (9.0-12.5)
[2018-05-16 16:08] LABS: MYOGLOBIN 203 ng/mL (0 - 121)
[2018-05-16 16:09] LABS: TOTAL PROTEIN 5.6 g/dL (6.3-8.2)
[2018-05-16 18:29] LABS: URINE BILIRUBIN - DIPSTICK NEGATIVE (NEGATIVE); URINE BLOOD DIPSTICK NEGATIVE (NEGATIVE); URINE COLOR YELLOW; URINE GLUCOSE - DIPSTICK NEGATIVE (NEGATIVE); URINE KETONE NEGATIVE (NEGATIVE); URINE LEUK ESTERASE NEGATIVE (NEGATIVE); URINE NITRITE - DIPSTICK NEGATIVE (Negative); URINE PH 6.5 (4.5-8.0); URINE PROTEIN - DIPSTICK TRACE mg/dL (NEG-TRACE); URINE UROBILINOGEN - DIPSTICK 0.2 E.U./dL (0.2)
[2018-05-16 19:32] VITALS: BP 148/74
[2018-05-16 23:40] VITALS: BP 129/64
[2018-05-17 04:13] VITALS: BP 144/76
[2018-05-17 06:20] LABS: HEMATOCRIT 36.9 % (39.0-50.0); HEMOGLOBIN 11.6 g/dl (14.0-18.0); IMMATURE GRANULOCYTES 0.9 % (0.0-5.0); MEAN CELL VOLUME 96.1 fL CALC (80.0-100.0); MEAN CORPUSCULAR HGB 30.2 pG CALC (26.0-32.0); MEAN CORPUSCULAR HGB CONC 31.4 g/L CALC (32.0-36.0); NEUT# 4.86 thou/uL (1.82-7.42); RED BLOOD COUNT 3.84 mill/uL (4.70-6.10); RED CELL DISTRI WIDTH 16.2 % (11.5-15.5)
[2018-05-17 06:35] LABS: ANION GAP 12 (6-22 (CALC)); BUN 26 mg/dL (8-23); BUN/CREATININE RATIO 30 (12-20 (CALC)); CARBON DIOXIDE 32 mmol/l (22-30); CHLORIDE 98 mmol/l (95-108); CREATININE 0.9 mg/dL (0.7-1.3); GFR > 60 ML/MIN (>=60 (CALC)); GFR FOR AFR.AMER. > 60 ML/MIN (>=60 (CALC)); POTASSIUM 4.3 mmol/l (3.5-5.1); SODIUM 138 mmol/l (137-146)
[2018-05-17 09:25] VITALS: BP 167/95
[2018-05-17 11:20] VITALS: BP 115/59
[2018-05-17 16:34] VITALS: BP 127/65
[2018-05-17 19:12] VITALS: BP 114/60
[2018-05-17 23:52] VITALS: BP 155/60
[2018-05-18 00:14] VITALS: BP 135/59
[2018-05-18 04:25] VITALS: BP 140/67
[2018-05-18 05:39] LABS: ALBUMIN 3.2 g/dL (3.2-5.0); ALKALINE PHOSPHATASE 109 u/l (38-126); AMYLASE 98 u/l (30-110); ANION GAP 13 (6-22 (CALC)); BILIRUBIN, TOTAL 0.6 mg/dL (0.0-1.4); BUN 25 mg/dL (8-23); BUN/CREATININE RATIO 28 (12-20 (CALC)); CARBON DIOXIDE 30 mmol/l (22-30); CHLORIDE 99 mmol/l (95-108); CREATININE 0.9 mg/dL (0.7-1.3); GFR > 60 ML/MIN (>=60 (CALC)); GFR FOR AFR.AMER. > 60 ML/MIN (>=60 (CALC)); LIPASE 275 u/l (23-300); MAGNESIUM 1.8 mg/dL (1.6-2.3); POTASSIUM 3.9 mmol/l (3.5-5.1); SGOT/AST 28 u/l (19-48); SODIUM 139 mmol/l (137-146)
[2018-05-18 05:52] LABS: HEMATOCRIT 40.4 % (39.0-50.0); HEMOGLOBIN 12.2 g/dl (14.0-18.0); IMMATURE GRANULOCYTES 0.9 % (0.0-5.0); MEAN CORPUSCULAR HGB 30.2 pG CALC (26.0-32.0); MEAN CORPUSCULAR HGB CONC 30.2 g/L CALC (32.0-36.0); RED BLOOD COUNT 4.04 mill/uL (4.70-6.10); RED CELL DISTRI WIDTH 15.9 % (11.5-15.5)
[2018-05-18 08:15] VITALS: BP 126/68
[2018-05-18 11:18] VITALS: BP 113/58
[2018-05-18 15:20] VITALS: BP 117/66
[2018-05-18 18:52] VITALS: BP 110/56
[2018-05-19] VITALS (10 sets, daily range): BP systolic 85–149; BP diastolic 50–70
[2018-05-19 05:00] LABS: HEMATOCRIT 38.6 % (39.0-50.0); HEMOGLOBIN 12.2 g/dl (14.0-18.0); IMMATURE GRANULOCYTES 0.7 % (0.0-5.0); MEAN CORPUSCULAR HGB 30.3 pG CALC (26.0-32.0); MEAN CORPUSCULAR HGB CONC 31.6 g/L CALC (32.0-36.0); NEUT# 5.5 thou/uL (1.82-7.42); RED BLOOD COUNT 4.02 mill/uL (4.70-6.10); RED CELL DISTRI WIDTH 15.9 % (11.5-15.5)
[2018-05-19 05:25] LABS: ALBUMIN 3.6 g/dL (3.2-5.0); ALKALINE PHOSPHATASE 130 u/l (38-126); ANION GAP 14 (6-22 (CALC)); BILIRUBIN, TOTAL 0.6 mg/dL (0.0-1.4); BUN 25 mg/dL (8-23); BUN/CREATININE RATIO 22 (12-20 (CALC)); CARBON DIOXIDE 31 mmol/l (22-30); CHLORIDE 98 mmol/l (95-108); CREATININE 1.1 mg/dL (0.7-1.3); GFR > 60 ML/MIN (>=60 (CALC)); GFR FOR AFR.AMER. > 60 ML/MIN (>=60 (CALC)); MAGNESIUM 1.8 mg/dL (1.6-2.3); POTASSIUM 4.4 mmol/l (3.5-5.1); SGOT/AST 27 u/l (19-48); SODIUM 139 mmol/l (137-146); TOTAL PROTEIN 6.7 g/dL (6.3-8.2)
[2018-05-20] VITALS (30 sets, daily range): BP systolic 89–145; BP diastolic 41–81
[2018-05-20 05:27] LABS: HEMATOCRIT 38.7 % (39.0-50.0); IMMATURE GRANULOCYTES 0.9 % (0.0-5.0); MEAN CELL VOLUME 96.3 fL CALC (80.0-100.0); MEAN CORPUSCULAR HGB 29.9 pG CALC (26.0-32.0); NEUT# 6.85 thou/uL (1.82-7.42); RED BLOOD COUNT 4.02 mill/uL (4.70-6.10); RED CELL DISTRI WIDTH 15.9 % (11.5-15.5)
[2018-05-20 05:48] LABS: ALBUMIN 3.2 g/dL (3.2-5.0); ALKALINE PHOSPHATASE 106 u/l (38-126); ANION GAP 15 (6-22 (CALC)); BILIRUBIN, TOTAL 0.5 mg/dL (0.0-1.4); BUN 23 mg/dL (8-23); BUN/CREATININE RATIO 22 (12-20 (CALC)); CARBON DIOXIDE 29 mmol/l (22-30); CHLORIDE 102 mmol/l (95-108); CREATININE 1.1 mg/dL (0.7-1.3); GFR > 60 ML/MIN (>=60 (CALC)); GFR FOR AFR.AMER. > 60 ML/MIN (>=60 (CALC)); MAGNESIUM 1.8 mg/dL (1.6-2.3); POTASSIUM 4.3 mmol/l (3.5-5.1); SGOT/AST 28 u/l (19-48); SODIUM 142 mmol/l (137-146); TOTAL PROTEIN 6.1 g/dL (6.3-8.2)
[2018-05-20] MEDS ORDERED: TIMOLOL MALEATE0.5 % OD (14:26)
[2018-05-20] MEDS ORDERED: LATANOPROST0.005 % (14:45)
[2018-05-21] VITALS (28 sets, daily range): BP systolic 84–155; BP diastolic 50–99
[2018-05-21 04:35] LABS: HEMATOCRIT 39.2 % (39.0-50.0); HEMOGLOBIN 12.1 g/dl (14.0-18.0); IMMATURE GRANULOCYTES 0.8 % (0.0-5.0); MEAN CELL VOLUME 97.5 fL CALC (80.0-100.0); MEAN CORPUSCULAR HGB 30.1 pG CALC (26.0-32.0); MEAN CORPUSCULAR HGB CONC 30.9 g/L CALC (32.0-36.0); NEUT# 7.08 thou/uL (1.82-7.42); RED BLOOD COUNT 4.02 mill/uL (4.70-6.10); RED CELL DISTRI WIDTH 15.9 % (11.5-15.5)
[2018-05-21 05:05] LABS: ALBUMIN 3.4 g/dL (3.2-5.0); ALKALINE PHOSPHATASE 115 u/l (38-126); ANION GAP 14 (6-22 (CALC)); BILIRUBIN, TOTAL 0.6 mg/dL (0.0-1.4); BUN 21 mg/dL (8-23); BUN/CREATININE RATIO 18 (12-20 (CALC)); CARBON DIOXIDE 28 mmol/l (22-30); CHLORIDE 103 mmol/l (95-108); CREATININE 1.2 mg/dL (0.7-1.3); GFR 57 ML/MIN (>=60 (CALC)); GFR FOR AFR.AMER. > 60 ML/MIN (>=60 (CALC)); MAGNESIUM 1.7 mg/dL (1.6-2.3); POTASSIUM 4.2 mmol/l (3.5-5.1); SGOT/AST 31 u/l (19-48); SODIUM 140 mmol/l (137-146); TOTAL PROTEIN 6.3 g/dL (6.3-8.2)
[2018-05-22] VITALS (10 sets, daily range): BP systolic 107–158; BP diastolic 55–82
[2018-05-22 05:11] LABS: HEMATOCRIT 40.1 % (39.0-50.0); HEMOGLOBIN 12.6 g/dl (14.0-18.0); IMMATURE GRANULOCYTES 0.6 % (0.0-5.0); MEAN CELL VOLUME 97.6 fL CALC (80.0-100.0); MEAN CORPUSCULAR HGB 30.7 pG CALC (26.0-32.0); MEAN CORPUSCULAR HGB CONC 31.4 g/L CALC (32.0-36.0); NEUT# 6.41 thou/uL (1.82-7.42); RED BLOOD COUNT 4.11 mill/uL (4.70-6.10); RED CELL DISTRI WIDTH 15.9 % (11.5-15.5)
[2018-05-22 06:13] LABS: ALBUMIN 3.6 g/dL (3.2-5.0); ALKALINE PHOSPHATASE 118 u/l (38-126); ANION GAP 14 (6-22 (CALC)); BILIRUBIN, TOTAL 0.6 mg/dL (0.0-1.4); BUN 19 mg/dL (8-23); BUN/CREATININE RATIO 19 (12-20 (CALC)); CARBON DIOXIDE 28 mmol/l (22-30); CHLORIDE 105 mmol/l (95-108); GFR > 60 ML/MIN (>=60 (CALC)); GFR FOR AFR.AMER. > 60 ML/MIN (>=60 (CALC)); MAGNESIUM 1.8 mg/dL (1.6-2.3); POTASSIUM 4.3 mmol/l (3.5-5.1); SGOT/AST 34 u/l (19-48); SODIUM 143 mmol/l (137-146); TOTAL PROTEIN 6.6 g/dL (6.3-8.2)
[2018-05-22] MEDS ORDERED: ELIQUIS2.5 MG PO (14:41)
[2018-05-22] MEDS ORDERED: LEVAQUIN500 MG PO (14:41)
[2018-05-22] MEDS ORDERED: LOSARTAN POT50 MG PO (14:44)
== END 2018-05-22 15:50 | disposition home health service (06) | DRG 190 ==
LOC: ED 15:07 → ED-I 16:40 → ED 17:14 → ICU 17:15 → MS2 17:15 → ICU 05-20 03:33
PROVIDERS: Emergency Medicine; Internal Medicine Nephrology; ADMIT Internal Medicine; ATTEND Internal Medicine
DX: J44.1 Chronic obstructive pulmonary disease with (acute) exacerbation (principal); J18.9 Pneumonia, unspecified organism; J44.0 Chronic obstructive pulmonary disease with (acute) lower respiratory infection; I48.0 Paroxysmal atrial fibrillation; E11.22 Type 2 diabetes mellitus with diabetic chronic kidney disease; I12.9 Hypertensive chronic kidney disease with stage 1 through stage 4 chronic kidney disease, or unspecified chronic kidney disease; N18.9 Chronic kidney disease, unspecified; J84.10 Pulmonary fibrosis, unspecified; I25.10 Atherosclerotic heart disease of native coronary artery without angina pectoris; N20.0 Calculus of kidney; E11.69 Type 2 diabetes mellitus with other specified complication; E78.5 Hyperlipidemia, unspecified; F41.1 Generalized anxiety disorder; F32.9 Major depressive disorder, single episode, unspecified; K21.9 Gastro-esophageal reflux disease without esophagitis; E03.9 Hypothyroidism, unspecified; I25.2 Old myocardial infarction; Z99.81 Dependence on supplemental oxygen; Z95.1 Presence of aortocoronary bypass graft; Z87.891 Personal history of nicotine dependence; Z95.5 Presence of coronary angioplasty implant and graft
CPT/HCPCS: J1650; Q9967

== ENCOUNTER 2018-05-28 17:07 | Inpatient (IN) | payer MEDICARE ==
[~2018-05-28] VITALS: Ht 170.2 cm; Wt 91.8 kg
[~2018-05-28 17:07] MED LIST changes: +ELIQUIS2.5 MG PO; +LATANOPROST0.005 %; +LEVAQUIN500 MG PO; +TIMOLOL MALEATE0.5 % OD
[2018-05-28 18:04] LABS: HEMATOCRIT 38.8 % (39.0-50.0); HEMOGLOBIN 11.9 g/dl (14.0-18.0); IMMATURE GRANULOCYTES 0.7 % (0.0-5.0); MEAN CELL VOLUME 99.2 fL CALC (80.0-100.0); MEAN CORPUSCULAR HGB 30.4 pG CALC (26.0-32.0); MEAN CORPUSCULAR HGB CONC 30.7 g/L CALC (32.0-36.0); NEUT# 7.43 thou/uL (1.82-7.42); RED BLOOD COUNT 3.91 mill/uL (4.70-6.10); RED CELL DISTRI WIDTH 15.8 % (11.5-15.5)
[2018-05-28 18:15] LABS: ALBUMIN 3.5 g/dL (3.2-5.0); ALKALINE PHOSPHATASE 174 u/l (38-126); ANION GAP 13 (6-22 (CALC)); BILIRUBIN, TOTAL 0.5 mg/dL (0.0-1.4); BUN 25 mg/dL (8-23); BUN/CREATININE RATIO 27 (12-20 (CALC)); CARBON DIOXIDE 31 mmol/l (22-30); CHLORIDE 98 mmol/l (95-108); CREATININE 0.9 mg/dL (0.7-1.3); ETHYL ALCOHOL 0 mg/dl (0-30); GFR > 60 ML/MIN (>=60 (CALC)); GFR FOR AFR.AMER. > 60 ML/MIN (>=60 (CALC)); LIPASE 114 u/l (23-300); POTASSIUM 4.9 mmol/l (3.5-5.1); SGOT/AST 15 u/l (19-48); SODIUM 138 mmol/l (137-146); TOTAL PROTEIN 6.3 g/dL (6.3-8.2)
[2018-05-28 19:51] LABS: URINE BILIRUBIN - DIPSTICK NEGATIVE (NEGATIVE); URINE BLOOD DIPSTICK NEGATIVE (NEGATIVE); URINE COLOR YELLOW; URINE GLUCOSE - DIPSTICK >=1000 mg/dL (NEGATIVE); URINE KETONE NEGATIVE (NEGATIVE); URINE LEUK ESTERASE NEGATIVE (NEGATIVE); URINE NITRITE - DIPSTICK NEGATIVE (Negative); URINE PH 5.5 (4.5-8.0); URINE PROTEIN - DIPSTICK 100 mg/dL (NEG-TRACE); URINE SPECIFIC GRAVITY >=1.030; URINE UROBILINOGEN - DIPSTICK 0.2 E.U./dL (0.2)
[2018-05-28 20:01] LABS: URINE MUCUS FEW hpf (NONE-FEW); URINE SQUAMOUS EPITHELIAL CELL FEW EPI/hpf (0-FEW)
[2018-05-28 20:02] LABS: BARBITURATES NEGATIVE (NEGATIVE); COCAINE NEGATIVE (NEGATIVE); METHADONE NEGATIVE (NEGATIVE); OXCYCODONE NEGATIVE (NEGATIVE); TETRAHYDROCANNABIONOL NEGATIVE (NEGATIVE); TRICYLIC ANTIDEPRESSANTS NEGATIVE (NEGATIVE)
[2018-05-29] VITALS (41 sets, daily range): BP systolic 69–161; BP diastolic 38–79
[2018-05-29 04:43] LABS: HEMATOCRIT 29.6 % (39.0-50.0); HEMOGLOBIN 9.2 g/dl (14.0-18.0); IMMATURE GRANULOCYTES 0.5 % (0.0-5.0); MEAN CORPUSCULAR HGB 30.5 pG CALC (26.0-32.0); MEAN CORPUSCULAR HGB CONC 31.1 g/L CALC (32.0-36.0); NEUT# 4.04 thou/uL (1.82-7.42); RED BLOOD COUNT 3.02 mill/uL (4.70-6.10); RED CELL DISTRI WIDTH 15.6 % (11.5-15.5)
[2018-05-29 04:52] LABS: ALKALINE PHOSPHATASE 117 u/l (38-126); BILIRUBIN, TOTAL 0.3 mg/dL (0.0-1.4); BUN 21 mg/dL (8-23); BUN/CREATININE RATIO 28 (12-20 (CALC)); CARBON DIOXIDE 32 mmol/l (22-30); CHLORIDE 102 mmol/l (95-108); CREATININE 0.8 mg/dL (0.7-1.3); GFR > 60 ML/MIN (>=60 (CALC)); GFR FOR AFR.AMER. > 60 ML/MIN (>=60 (CALC)); SGOT/AST 13 u/l (19-48); SODIUM 139 mmol/l (137-146)
[2018-05-29 04:57] LABS: ANION GAP 9 (6-22 (CALC)); POTASSIUM 3.8 mmol/l (3.5-5.1); TOTAL PROTEIN 4.9 g/dL (6.3-8.2)
[2018-05-29 04:58] LABS: ALBUMIN 2.6 g/dL (3.2-5.0)
[2018-05-30] VITALS (30 sets, daily range): BP systolic 100–191; BP diastolic 35–90
[2018-05-30 05:30] LABS: HEMATOCRIT 34.1 % (39.0-50.0); HEMOGLOBIN 10.5 g/dl (14.0-18.0); IMMATURE GRANULOCYTES 0.6 % (0.0-5.0); MEAN CELL VOLUME 98.6 fL CALC (80.0-100.0); MEAN CORPUSCULAR HGB 30.3 pG CALC (26.0-32.0); MEAN CORPUSCULAR HGB CONC 30.8 g/L CALC (32.0-36.0); NEUT# 5.33 thou/uL (1.82-7.42); RED BLOOD COUNT 3.46 mill/uL (4.70-6.10); RED CELL DISTRI WIDTH 16.1 % (11.5-15.5)
[2018-05-30 06:01] LABS: ALBUMIN 2.7 g/dL (3.2-5.0); ALKALINE PHOSPHATASE 115 u/l (38-126); ANION GAP 9 (6-22 (CALC)); BILIRUBIN, TOTAL 0.4 mg/dL (0.0-1.4); BUN 17 mg/dL (8-23); BUN/CREATININE RATIO 22 (12-20 (CALC)); CARBON DIOXIDE 30 mmol/l (22-30); CHLORIDE 106 mmol/l (95-108); CREATININE 0.8 mg/dL (0.7-1.3); GFR > 60 ML/MIN (>=60 (CALC)); GFR FOR AFR.AMER. > 60 ML/MIN (>=60 (CALC)); POTASSIUM 3.9 mmol/l (3.5-5.1); SGOT/AST 17 u/l (19-48); SODIUM 141 mmol/l (137-146); TOTAL PROTEIN 5.2 g/dL (6.3-8.2)
[2018-05-31] VITALS (14 sets, daily range): BP systolic 137–171; BP diastolic 60–99
[2018-06-01] VITALS (15 sets, daily range): BP systolic 94–168; BP diastolic 47–85
[2018-06-01 05:39] LABS: HEMATOCRIT 36.9 % (39.0-50.0); HEMOGLOBIN 11.6 g/dl (14.0-18.0); IMMATURE GRANULOCYTES 0.9 % (0.0-5.0); MEAN CELL VOLUME 96.6 fL CALC (80.0-100.0); MEAN CORPUSCULAR HGB 30.4 pG CALC (26.0-32.0); MEAN CORPUSCULAR HGB CONC 31.4 g/L CALC (32.0-36.0); NEUT# 3.99 thou/uL (1.82-7.42); RED BLOOD COUNT 3.82 mill/uL (4.70-6.10)
[2018-06-01 06:17] LABS: ALBUMIN 3.2 g/dL (3.2-5.0); ALKALINE PHOSPHATASE 115 u/l (38-126); AMYLASE 65 u/l (30-110); ANION GAP 12 (6-22 (CALC)); BILIRUBIN, TOTAL 0.6 mg/dL (0.0-1.4); BUN 14 mg/dL (8-23); BUN/CREATININE RATIO 19 (12-20 (CALC)); CARBON DIOXIDE 29 mmol/l (22-30); CHLORIDE 103 mmol/l (95-108); CREATININE 0.7 mg/dL (0.7-1.3); GFR > 60 ML/MIN (>=60 (CALC)); GFR FOR AFR.AMER. > 60 ML/MIN (>=60 (CALC)); LIPASE 92 u/l (23-300); MAGNESIUM 1.6 mg/dL (1.6-2.3); POTASSIUM 3.3 mmol/l (3.5-5.1); SGOT/AST 24 u/l (19-48); SODIUM 141 mmol/l (137-146); TOTAL PROTEIN 5.9 g/dL (6.3-8.2)
[2018-06-02] VITALS (17 sets, daily range): BP systolic 91–177; BP diastolic 45–88
[2018-06-02 04:16] LABS: HEMATOCRIT 36.8 % (39.0-50.0); HEMOGLOBIN 11.5 g/dl (14.0-18.0); IMMATURE GRANULOCYTES 0.5 % (0.0-5.0); MEAN CELL VOLUME 98.7 fL CALC (80.0-100.0); MEAN CORPUSCULAR HGB 30.8 pG CALC (26.0-32.0); MEAN CORPUSCULAR HGB CONC 31.3 g/L CALC (32.0-36.0); NEUT# 4.26 thou/uL (1.82-7.42); RED BLOOD COUNT 3.73 mill/uL (4.70-6.10); RED CELL DISTRI WIDTH 15.9 % (11.5-15.5)
[2018-06-02 04:26] LABS: ALBUMIN 3.2 g/dL (3.2-5.0); ALKALINE PHOSPHATASE 98 u/l (38-126); ANION GAP 11 (6-22 (CALC)); BILIRUBIN, TOTAL 0.5 mg/dL (0.0-1.4); BUN 14 mg/dL (8-23); BUN/CREATININE RATIO 19 (12-20 (CALC)); CARBON DIOXIDE 31 mmol/l (22-30); CHLORIDE 105 mmol/l (95-108); CREATININE 0.8 mg/dL (0.7-1.3); GFR > 60 ML/MIN (>=60 (CALC)); GFR FOR AFR.AMER. > 60 ML/MIN (>=60 (CALC)); MAGNESIUM 1.7 mg/dL (1.6-2.3); POTASSIUM 3.2 mmol/l (3.5-5.1); SGOT/AST 24 u/l (19-48); SODIUM 143 mmol/l (137-146); TOTAL PROTEIN 5.8 g/dL (6.3-8.2)
[2018-06-03] VITALS (12 sets, daily range): BP systolic 118–158; BP diastolic 57–89
[2018-06-03 05:16] LABS: HEMATOCRIT 34.1 % (39.0-50.0); HEMOGLOBIN 10.7 g/dl (14.0-18.0); IMMATURE GRANULOCYTES 0.8 % (0.0-5.0); MEAN CELL VOLUME 97.4 fL CALC (80.0-100.0); MEAN CORPUSCULAR HGB 30.6 pG CALC (26.0-32.0); MEAN CORPUSCULAR HGB CONC 31.4 g/L CALC (32.0-36.0); NEUT# 3.5 thou/uL (1.82-7.42); RED BLOOD COUNT 3.5 mill/uL (4.70-6.10); RED CELL DISTRI WIDTH 15.8 % (11.5-15.5)
[2018-06-03 05:40] LABS: ALKALINE PHOSPHATASE 100 u/l (38-126); ANION GAP 10 (6-22 (CALC)); BILIRUBIN, TOTAL 0.5 mg/dL (0.0-1.4); BUN 16 mg/dL (8-23); BUN/CREATININE RATIO 18 (12-20 (CALC)); CARBON DIOXIDE 30 mmol/l (22-30); CHLORIDE 105 mmol/l (95-108); CREATININE 0.9 mg/dL (0.7-1.3); GFR > 60 ML/MIN (>=60 (CALC)); GFR FOR AFR.AMER. > 60 ML/MIN (>=60 (CALC)); SGOT/AST 20 u/l (19-48); SODIUM 141 mmol/l (137-146); TOTAL PROTEIN 5.6 g/dL (6.3-8.2)
[2018-06-03] MEDS ORDERED: DUONEB IN (16:26)
[2018-06-03] MEDS ORDERED: COZAAR50 MG PO (16:26)
[2018-06-03] MEDS ORDERED: XANAX0.5 MG PO (16:27)
[2018-06-03] MEDS ORDERED: ELIQUIS5 MG PO (16:31)
[2018-06-03] MEDS ORDERED: LEVEMIR100 UNIT/M SC (16:32)
[2018-06-03] MEDS ORDERED: SYNTHROID100 MCG PO (16:33)
[2018-06-03] MEDS ORDERED: LOPRESSOR50 M1 PO (16:33)
[2018-06-04] VITALS: BP 169/92
[2018-06-04 02:00] VITALS: BP 140/73
[2018-06-04 04:00] VITALS: BP 153/72
[2018-06-04 06:00] VITALS: BP 128/61
[2018-06-04 08:00] VITALS: BP 154/83
[2018-06-04 10:00] VITALS: BP 126/80
== END 2018-06-04 10:31 | DRG 208 ==
LOC: ED 17:07 → ED-I 19:26 → ED 21:19 → ICU 21:20
PROVIDERS: Family Medicine; Internal Medicine Nephrology; ADMIT Internal Medicine; ATTEND Internal Medicine
PROC: 0BH17EZ Insertion of Endotracheal Airway into Trachea, Via Natural or Artificial Opening (ICD-10-PCS; principal; 2018-05-28)
PROC: 5A1945Z Respiratory Ventilation, 24-96 Consecutive Hours (ICD-10-PCS; 2018-05-28)
PROC: 02HV33Z Insertion of Infusion Device into Superior Vena Cava, Percutaneous Approach (ICD-10-PCS; 2018-05-28)
PROC: 0T9B70Z Drainage of Bladder with Drainage Device, Via Natural or Artificial Opening (ICD-10-PCS; 2018-05-28)
PROC: 5A09357 Assistance with Respiratory Ventilation, Less than 24 Consecutive Hours, Continuous Positive Airway Pressure (ICD-10-PCS; 2018-06-02)
DX: J44.1 Chronic obstructive pulmonary disease with (acute) exacerbation (principal); J18.9 Pneumonia, unspecified organism; J96.02 Acute respiratory failure with hypercapnia; J96.01 Acute respiratory failure with hypoxia; T42.4X1A Poisoning by benzodiazepines, accidental (unintentional), initial encounter; R41.82 Altered mental status, unspecified; J44.0 Chronic obstructive pulmonary disease with (acute) lower respiratory infection; J84.10 Pulmonary fibrosis, unspecified; I10 Essential (primary) hypertension; E11.9 Type 2 diabetes mellitus without complications; I25.10 Atherosclerotic heart disease of native coronary artery without angina pectoris; I48.0 Paroxysmal atrial fibrillation; F41.1 Generalized anxiety disorder; F32.9 Major depressive disorder, single episode, unspecified; E03.9 Hypothyroidism, unspecified; E78.5 Hyperlipidemia, unspecified; N20.0 Calculus of kidney; K21.9 Gastro-esophageal reflux disease without esophagitis; I25.2 Old myocardial infarction; Y95 Nosocomial condition; Z87.891 Personal history of nicotine dependence; Z87.01 Personal history of pneumonia (recurrent); Z95.5 Presence of coronary angioplasty implant and graft; Z99.81 Dependence on supplemental oxygen; Z79.01 Long term (current) use of anticoagulants
CPT/HCPCS: J3370